=== PATIENT | female | born 1950 | race Caucasian/White ===

== ENCOUNTER 2023-04-01 11:17 | Emergency (ER) | payer MEDICARE, SELFPAY ==
[2023-04-01] VITALS (7 sets, daily range): BP systolic 125–130; BP diastolic 68–76; PULSE 63–76; RESP 16; TEMP 36.8; O2SAT 96–99; BMI 21.1
--- NOTE | 2023-04-01 11:47 | CRLHL7_ITS ---
For Patients: As a result of the Century Cures Act, medical imaging exams and procedure reports are released immediately into your electronic medical record. You may view this report before your referring provider. If you have questions, please contact your health care provider. INDICATION: Chest pain. TECHNIQUE: Chest 2 views. COMPARISON: None. FINDINGS: Cardiovascular and mediastinum: Heart size and vasculature are normal in caliber and appearance. Lungs and pleural spaces: Lungs are clear. No sign of infiltrate or mass. No sign of pleural effusion. No pneumothorax. Bones and soft tissues: No significant findings. IMPRESSION: No acute or significant findings. Dictated by Jasbir Britt MD @ 04/01/2023 12:42:08 PM (Electronically Signed)
[2023-04-01] MEDS: ASPIRIN 81 MG TAB.CHEW 162 MG PO (11:59)
--- NOTE | 2023-04-01 12:12 | ED.GENADULT ---
HPI - General Adult General Date Seen: 04/01/23 Chief complaint: Chest Pain Stated complaint: chest pain,left arm pain,shallow breathing Time Seen by Provider: 04/01/23 11:46 History of Present Illness HPI narrative: This is a very pleasant 72-year-old female with no previous cardiac history who presents to the ER today with concern for left arm discomfort and chest pain. She 1st noted left arm discomfort that was present on for Friday morning and lasted through most of the day. It got better after she should Tylenol Friday evening and then was gone when she woke up Friday. The left arm discomfort was low mostly located in the antecubital fossa. There was no exacerbating or alleviating factors. No relationship to activity and no associated chest pain at that time. She was pretty well on Friday and Friday. When she went to bed last night on Friday she had an episode where she felt like she pulled a muscle in her chest with the discomfort all the way across the front of her chest that lasted about 10 minutes. She tried to lay down listen to her normal relaxing music to fall asleep. After about 10 minute she began to have some jabbing stabbing sharp very brief episodes of pain located in various spots across her chest. This lasted total about maybe 20 minutes or 30 minutes and then went away. She was also coughing, anxious, and short of breath. She did not have any further chest pain overnight. This morning she is having more substernal chest discomfort. No clear trigger for it. No relationship to physical activity, position, exertion, or rest. No change with eating. No fever. No cough today. She does note that she is under a lot of stress. At 72 years old she is the sole provider for her 11-year-old granddaughter. She and her had been raising her granddaughter for the past 7 years. Her last year of [employer]. Since last year her granddaughter has been having increasing trouble with behaviors, anxiety,. Her granddaughter has been struggling with school and has had been in online school and is doing a bit better. Granddaughter recently underwent testing at a facility in [place] for ADHD but they are still waiting to hear the results. She is not currently on any medicine. Patient notes that she is under lot of stress. She is worried about how to raise her granddaughter and she is worried that she needs to live long enough to see her granddaughter into adulthood. She does have a chronic cough that is not changed from normal recently. She wonders if it might be if it might be related to her lisinopril. Past medical history includes hypertension, on lisinopril. Asthma, but no current wheezing. Otherwise no cardiac risk factors. Related Data Home Medications Medication Instructions Recorded Confirmed lisinopril 10 mg tablet 10 mg PO DAILY 04/01/23 04/01/23 pantoprazole 40 mg tablet,delayed 40 mg PO DAILY 04/01/23 04/01/23 release Allergies Allergy/AdvReac Type Severity Reaction Status Date / Time No Known Drug Allergies Allergy Verified 04/01/23 11:27 PFSH PFS Social History Smoking Status: Former smoker How often do you have a drink containing alcohol: never How often do you have six or more drinks on one occasion: Never AUDIT-C Alcohol total score: 0 Non-prescribed substance use: denies use Exam Const: Vital Signs, click to edit/add: Vital Signs - 24 hr 04/01/23 11:23 04/01/23 12:07 04/01/23 12:15 Temperature 98.2 F Pulse Rate 73 67 Pulse Rate [Pulse Oximeter] 76 Respiratory Rate 16 Blood Pressure Blood Pressure [Ri ght Upper Arm] 130/68 Pulse Oximetry 99 96 96 Oxygen Delivery Me thod Room Air 04/01/23 12:35 04/01/23 12:56 04/01/23 13:00 Temperature Pulse Rate 64 74 63 Pulse Rate [Pulse Oximeter] Respiratory Rate Blood Pressure Blood Pressure [Ri ght Upper Arm] Pulse Oximetry 98 96 97 Oxygen Delivery Me thod 04/01/23 13:02 Temperature Pulse Rate 67 Pulse Rate [Pulse Oximeter] Respiratory Rate Blood Pressure 125/76 Blood Pressure [Ri ght Upper Arm] Pulse Oximetry 97 Oxygen Delivery Me thod Course Vital Signs Vital signs: Initial Vital Signs Temperature 98.2 F 04/01/23 11:23 Temperature Source Temporal Artery Scan 04/01/23 11:23 Pulse Rate 76 04/01/23 11:23 Respiratory Rate 16 04/01/23 11:23 Blood Pressure 130/68 04/01/23 11:23 Blood Pressure Mean 88 04/01/23 11:23 Blood Pressure Position Sitting 04/01/23 11:23 Pulse Oximetry 99 11/14/23 11:23 Oxygen Delivery Method Room Air 04/01/23 11:23 Vital Signs Temperature 98.2 F 04/01/23 11:23 Pulse Rate 76 04/01/23 11:23 Respiratory Rate 16 04/01/23 11:23 Blood Pressure 130/68 04/01/23 11:23 Pulse Oximetry 99 04/01/23 11:23 Oxygen Delivery Method Room Air 04/01/23 11:23 Temperature 98.2 F 04/01/23 11:23 Pulse Rate 67 04/01/23 13:02 Respiratory Rate 16 04/01/23 11:23 Blood Pressure 125/76 04/01/23 13:02 Pulse Oximetry 97 04/01/23 13:02 Oxygen Delivery Method Room Air 04/01/23 11:23 Medications Administered Medications: Discontinued Medications Generic Name Dose Route Start Last Admin Trade Name Freq PRN Reason Stop Dose Admin Aspirin 162 mg 04/01/23 11:47 04/01/23 11:59 Aspirin 81 Mg Tab.Chew PO 04/01/23 11:48 162 mg ONCE ONE Administration Medical Decision Making [facility] Narrative Medical decision making narrative: This patient presents to the ER today for evaluation of chest pain that began last night at bedtime and again this morning after she woke up, also an episode of arm pain 3 days ago that is no longer present.. Differential was broad. No evidence of palpitations, syncope or other cardiac dysrhythmia. We considered possible ACS, however workup with EKG and troponin is negative. Given time since onset of symptoms, we did check initial and 2 hour delta troponins, which are reassuring and normal. I do not think the patient needs to be admitted for further sets of enzymes. EKG shows no evidence for pericarditis. Clinical presentation not suggestive of myocarditis. Chest x-ray shows no evidence for pneumonia, pneumothorax, pulmonary edema, pleural effusion, rib fracture, cardiomegaly. Mediastinum is normal on the x-ray. The patient has no ripping or tearing pain through to the back and has symmetric pulses on exam, no other acute neuro findings so I doubt aortic dissection. Risk of radiation and contrast exposure would outweigh the benefit of CT angiogram. We considered PE for this patient. Overall low risk. D-dimer negative. Will hold off on CT PA. No wheezing or bronchospasm to suggest COPD/asthma. No signs of chest wall cellulitis, shingles, injury. She does endorse a lot of psychosocial stress, in particular she is the sole caregiver for her 11-year-old granddaughter who is having some emotional and behavioral problems that are affecting her life and her granddaughter is life. They are in the process of getting a workup for ADHD because her granddaughter has been doing poorly in school. She wonders if her discomfort might be due to stress. I agree that stress may be playing a large role in her life, but the presence of a stressful situation does not then rule out the potential for acute coronary syndrome. Testing for ACS so far is negative here in the ER. Recommend outpatient stress test and follow-up with primary care. She will also return to the ER with any recurrent or worsening symptoms. With reasonable clinical confidence, I think the patient is safe for outpatient follow up. Discussed return precautions. Questions answered. Patient voices comfort with the plan. Lab Data Labs: Lab Results 04/01/23 Range/Units 11:50 WBC 5.23 (4.50-11.00) K/uL RBC 4.40 (4.00-5.20) m/uL Hgb 13.0 (12.0-16.0) gm/dL Hct 39.0 (33.0-51.0) % MCV 89 (80-100) fL MCH 30 (26-34) pg MCHC 33 (32-36) gm/dL RDW Coeff of Mandy 13.2 (11.5-15.5) % Plt Count 259 (140-440) K/uL Neut % (Auto) 71.4 (42.0-72.0) % Lymph % (Auto) 18.4 L (20-44) % Wagoner % (Auto) 7.5 (0.0-11.0) % Eos % (Auto) 2.1 (0.0-7.0) % Baso % (Auto) 0.4 (0.0-3.0) % Neut # (Auto) 3.74 (1.7-7.0) K/uL Lymph # (Auto) 1.00 (0.90-2.90) K/uL Wagoner # (Auto) 0.40 (0.00-0.90) K/UL Eos # (Auto) 0.11 (0.00-0.50) K/uL Baso # (Auto) 0.02 (0.00-0.30) K/uL Abs Immat Gran (auto) 0.01 (0.00-0.30) K/uL Imm/Tot Granulo (auto) 0.2 % D-Dimer Quant (PE/DVT) < 0.27 (0.00-0.50) ug/ml Sodium 135 (135-149) mmol/L Potassium 4.2 (3.6-5.1) mmol/L Chloride 100 (96-114) mmol/L Carbon Dioxide 27 (20-32) mmol/L Anion Gap 8 (7-15) mEq/L BUN 7 (7-30) mg/dL Creatinine 0.5 (0.5-1.5) mg/dL Estimated Creat Clear 50.60 Estimated GFR 101 ml/min Glucose 124 H (60-115) mg/dL Calcium 9.3 (8.4-10.6) mg/dL Troponin I < 0.01 L (0.01-0.04) ng/mL POC Troponin I 0.00 L (0.01-0.04) ng/ml Imaging Data Chest x-ray: Attestation: I have reviewed the pertinent imaging results. Radiologist's impression: IMPRESSION: No acute or significant findings. ECG Data Attestation: I personally reviewed and interpreted this ECG as follows: Interpretation: Normal sinus rhythm rate 66. Computer interprets atrial fibrillation but this is inaccurate. There are visible P waves in leads V1, V3, V4, V5, V6, 3, 2, AVF, aVL, AVR. Difficult to see P waves in leads 1 and V2. MA 160 QRS axis normal axis. No pathologic Q-waves. ST segment/T wave: New ST segment elevation or depression. QTc: 413 Discharge Plan Discharge Clinical Impression: Chest pain Patient Disposition: Home, Self-Care Condition: Stable Instructions: Chest Pain (DC) Additional Instructions: Please return to the ER right away if you have worsening chest pain, trouble breathing, lightheadedness, fainting spells, or any problems. Please follow-up with your regular doctor as soon as possible, within 1 week, to have a recheck and to arrange an outpatient stress test. Please follow-up with your granddaughters doctor. Asked them to help arrange outpatient psychology evaluation for your granddaughter. Prescriptions: No Action lisinopril 10 mg tablet 10 mg PO DAILY pantoprazole 40 mg tablet,delayed release (DR/EC) 40 mg PO DAILY Follow Up/Referrals: Yana Pimentel PA-C [Primary Care Provider] - Stand Alone Forms: [employer] Info Instructions
[2023-04-01 12:27] LABS: Basophils Absolute Auto 0.02 K/uL (0.00-0.30); Basophils Percent Auto 0.4 % (0.0-3.0); Eosinophils Absolute Auto 0.11 K/uL (0.00-0.50); Eosinophils Percent Auto 2.1 % (0.0-7.0); Immature Granulocytes Abs Auto 0.01 K/uL (0.00-0.30); Immature Granulocytes Pct Auto 0.2 %; Lymphocytes Percent Auto 18.4 % (20-44); Mean Corpuscular HGB Conc 33 gm/dL (32-36); Mean Corpuscular Hemoglobin 30 pg (26-34); Mean Corpuscular Volume 89 fL (80-100); Monocytes Percent Auto 7.5 % (0.0-11.0); Neutrophils Absolute Auto 3.74 K/uL (1.7-7.0); Neutrophils Percent Auto 71.4 % (42.0-72.0); Platelet Count* 259 K/uL (140-440); RDW Coefficient of Variation % 13.2 % (11.5-15.5); Slide Review Reflex No; White Blood Count* 5.23 K/uL (4.50-11.00)
[2023-04-01 12:31] LABS: Chloride* 100 mmol/L (96-114); Sodium* 135 mmol/L (135-149)
[2023-04-01 12:32] LABS: Potassium* 4.2 mmol/L (3.6-5.1)
[2023-04-01 12:34] LABS: Creatinine* 0.5 mg/dL (0.5-1.5); Estimated Glomerular Filt Rate 101 ml/min
[2023-04-01 12:35] LABS: Anion Gap 8 mEq/L (7-15); Blood Urea Nitrogen* 7 mg/dL (7-30); Calcium* 9.3 mg/dL (8.4-10.6); Carbon Dioxide* 27 mmol/L (20-32); Glucose* 124 mg/dL (60-115)
[2023-04-01 12:43] LABS: D Dimer Quantitative* < 0.27 ug/ml (0.00-0.50)
[2023-04-01 12:52] LABS: Troponin I* < 0.01 ng/mL (0.01-0.04)
[2023-06-03 13:58] LABS: Troponin, Point-of-Care* 0.01 ng/ml (0.01-0.04)
== END 2023-04-01 14:42 | disposition home or self-care (01) ==
PROVIDERS: Emergency Provider Emergency Medicine; PCP Physician Assistant Medical
DX: R07.9 Chest pain, unspecified (principal)
CPT/HCPCS: 36415; 71046; 80048; 84484; 85025; 85379; 93005; 99284; 99285; A9270